=== PATIENT | male | born 1935 | race Caucasian/White ===

== ENCOUNTER 2017-08-16 06:37 | Observation (INO) | payer MEDICARE, BC ==
[~2017-08-16] VITALS: Ht 172.7 cm; Wt 90.5 kg
[2017-08-16 06:38] VITALS: BP 173/86; PULSE 68; RESP 16; TEMP 98.4; O2SAT 95
[2017-08-16] MEDS ORDERED: LIPI80TA PO (06:53)
[2017-08-16] MEDS ORDERED: ASPI-516 CHEW (06:53)
[2017-08-16] MEDS ORDERED: LEXA10TA PO (06:53)
[2017-08-16] MEDS ORDERED: CARV12.52 PO (06:55)
[2017-08-16] MEDS ORDERED: PROT40TA PO (06:55)
[2017-08-16] MEDS ORDERED: PRIN5TAB PO (06:55)
[2017-08-16] MEDS ORDERED: METO-309 PO (06:55)
[2017-08-16] MEDS ORDERED: ASPIRIN 325 MG TAB PO ONE (07:15)
[2017-08-16 07:16] VITALS: O2SAT 96
--- NOTE | 2017-08-16 07:17 | PD ---
HPI Chief Complaint: Chest Pain Time Seen by Provider: 07:06 Travel History International Travel<30 days: No Contact w/Intl Traveler<30days: No Traveled to known affect area: No History of Present Illness HPI 81-year-old male complains chest pain. Patient states that he started having chest pain for the past week. Patient states the chest pain started a week ago and last about 4-5 days and easing off yesterday however get worse today. Patient states that the pain radiated to left arm. Patient denies palpitation nausea or diaphoresis. Patient states that the chest pain and pressure pain localized to left chest. Patient denies any fever chills. Patient denies any coughing congestion. Patient has history of CAD status post SC, CABG, aortic valve surgery. Patient has history hypertension and hyperlipidemia. Patient denies history diabetes. Patient is a nonsmoker. Patient on aspirin 81 mg daily. On a scale of 1-10 the pain is a 6. Patient states the pain is not the social with exertion. PFSH Past Medical History Hx Anticoagulant Therapy: Yes (Aspirin) Arthritis: Yes Cardiovascular Problems: Yes (MIx1, CABG x3, Aortic valve replacement, HTN, CAD ) High Cholesterol: Yes Chest Pain: Yes Coronary Artery Disease: Yes Diminished Hearing: Yes (R ear) GERD: Yes Hypertension: Yes Inguinal Hernia: Yes Myocardial Infarction: Yes Tetanus Vaccination: Unknown Influenza Vaccination: Yes Past Surgical History Abdominal Surgery: Yes (R inguinal hernia) Coronary Artery Bypass Graft: Yes (x3) Social History Alcohol Use: No (rarely) Tobacco Use: No Substance Use: No Allergies-Medications (Allergen,Severity, Reaction): Coded Allergies: No Known Drug Allergies (Verified Allergy, Unknown, 08/16/17) Reported Meds & Prescriptions Reported Meds & Active Scripts Active Reported Protonix (Pantoprazole Sodium) 40 Mg Tab 40 Mg PO DAILY Carvedilol 12.5 Mg Tab 12.5 Mg PO BID Lopressor (Metoprolol Tartrate) 50 Mg Tab 25 Mg PO BID Prinivil (Lisinopril) 5 Mg Tab 5 Mg PO BID Lexapro (Escitalopram Oxalate) 10 Mg Tab 10 Mg PO DAILY Lipitor (Atorvastatin Calcium) 80 Mg Tab 80 Mg PO HS Aspirin 81 Mg Chew 81 Mg CHEW BID Review of Systems General / Constitutional: No: Fever Eyes: No: Visual changes HENT: No: Headaches Cardiovascular: Positive: Chest Pain or Discomfort Respiratory: No: Shortness of Breath Gastrointestinal: No: Abdominal Pain Genitourinary: No: Dysuria Musculoskeletal: No: Pain Skin: No Rash Neurologic: No: Weakness Psychiatric: No: Depression Endocrine: No: Polydipsia Hematologic/Lymphatic: No: Easy Bruising Physical Exam Narrative GENERAL: Well-nourished, well-developed patient. SKIN: Focused skin assessment warm/dry. HEAD: Normocephalic. EYES: No scleral icterus. No injection or drainage. NECK: Supple, trachea midline. No JVD or lymphadenopathy. CARDIOVASCULAR: Regular rate and rhythm without murmurs, gallops, or rubs. RESPIRATORY: Breath sounds equal bilaterally. No accessory muscle use. GASTROINTESTINAL: Abdomen soft, non-tender, nondistended. MUSCULOSKELETAL: No cyanosis, or edema. BACK: Nontender without obvious deformity. No CVA tenderness. Neurologic exam normal. Data Data Last Documented VS Vital Signs Date Time Temp Pulse Resp B/P (MAP) Pulse Ox O2 Delivery O2 Flow Rate FiO2 08/16/17 07:16 96 Room Air 08/16/17 06:38 98.4 68 16 Orders Orders Electrocardiogram (08/16/17 07:12) Complete Blood Count With Diff (08/16/17 07:12) Comprehensive Metabolic Panel (08/16/17 07:12) Creatine Kinase (Cpk) (08/16/17 07:12) Troponin I (08/16/17 07:12) Prothrombin Time / Inr (Pt) (08/16/17 07:12) Act Partial Throm Time (Ptt) (08/16/17 07:12) Chest, Single Ap (08/16/17 07:12) Iv Access Insert/Monitor (08/16/17 07:12) Ecg Monitoring (08/16/17 07:12) Oximetry (08/16/17 07:12) Aspirin (Aspirin) (08/16/17 07:15) Morphine Inj (Morphine Inj) (08/16/17 07:30) Ondansetron Inj (Zofran Inj) (08/16/17 07:30) Morphine Inj (Morphine Inj) (08/16/17 09:00) Labs Laboratory Tests Test 08/16/17 07:05 White Blood Count 8.1 TH/MM3 Red Blood Count 5.09 MIL/MM3 Hemoglobin 16.0 GM/DL Hematocrit 45.9 % Mean Corpuscular Volume 90.1 FL Mean Corpuscular Hemoglobin 31.4 PG Mean Corpuscular Hemoglobin Concent 34.8 % Red Cell Distribution Width 14.0 % Platelet Count 177 TH/MM3 Mean Platelet Volume 8.8 FL Neutrophils (%) (Auto) 50.0 % Lymphocytes (%) (Auto) 34.8 % Monocytes (%) (Auto) 8.5 % Eosinophils (%) (Auto) 5.0 % Basophils (%) (Auto) 1.7 % Neutrophils # (Auto) 4.0 TH/MM3 Lymphocytes # (Auto) 2.8 TH/MM3 Monocytes # (Auto) 0.7 TH/MM3 Eosinophils # (Auto) 0.4 TH/MM3 Basophils # (Auto) 0.1 TH/MM3 CBC Comment DIFF FINAL Differential Comment Prothrombin Time 11.0 SEC Prothromb Time International Ratio 1.1 RATIO Activated Partial Thromboplast Time 25.9 SEC Blood Urea Nitrogen 13 MG/DL Creatinine 0.95 MG/DL Random Glucose 102 MG/DL Total Protein 7.1 GM/DL Albumin 3.7 GM/DL Calcium Level 9.0 MG/DL Alkaline Phosphatase 92 U/L Aspartate Amino Transf (AST/SGOT) 27 U/L Alanine Aminotransferase (ALT/SGPT) 31 U/L Total Bilirubin 0.9 MG/DL Sodium Level 138 MEQ/L Potassium Level 4.2 MEQ/L Chloride Level 103 MEQ/L Carbon Dioxide Level 29.4 MEQ/L Anion Gap 6 MEQ/L Estimat Glomerular Filtration Rate 76 ML/MIN Total Creatine Kinase 105 U/L Troponin I LESS THAN 0.02 NG/ML MDM Medical Decision Making Medical Screen Exam Complete: Yes Emergency Medical Condition: Yes Interpretation(s) EKG shows sinus rhythm nonspecific ST-T wave change. T-wave inversion in I, aVL , V5 and V6. Occasional PVCs. No previous EKG for comparison. Differential Diagnosis Differential diagnosis including musculoskeletal, angina, SC, PE, pneumothorax. Narrative Course 81-year-old male with chest pain. History of CAD. Patient will be admitted to the chest pain center. Diagnosis Primary Impression: Chest pain Qualified Codes: R07.9 - Chest pain, unspecified Admitting Information Admitting Physician Requests: Observation Shorty Hough MD Aug 16, 2017 07:16
[2017-08-16] MEDS ORDERED: MORPHINE SULFATE 2 MG/ML INJ IV PUSH ONE ×2 (07:30→09:00)
[2017-08-16] MEDS ORDERED: ONDANSETRON HCL 4 MG/2 ML VIAL IV PUSH ONE (07:30)
[2017-08-16 07:31] LABS: BASOPHIL # 0.1 TH/MM3 (0-0.2); BASOPHIL % 1.7 % (0.0-2.0); EOSINOPHIL # 0.4 TH/MM3 (0-0.4); HEMATOCRIT 45.9 % (39.0-51.0); LYMPH % 34.8 % (9.0-44.0); LYMPHOCYTE # 2.8 TH/MM3 (1.0-4.8); MEAN CELL VOLUME 90.1 FL (80.0-100.0); MEAN CORPUSCULAR HEMOGLOBIN 31.4 PG (27.0-34.0); MEAN CORPUSCULAR HGB CONC 34.8 % (32.0-36.0); MEAN PLATELET VOLUME 8.8 FL (7.0-11.0); MONO % 8.5 % (0.0-8.0); MONOCYTE # 0.7 TH/MM3 (0-0.9); PLATELET COUNT 177 TH/MM3 (150-450); RED BLOOD COUNT 5.09 MIL/MM3 (4.50-5.90); WHITE BLOOD COUNT 8.1 TH/MM3 (4.0-11.0)
[2017-08-16 07:40] LABS: INTERNATIONAL NORMALIZED RATIO 1.1 RATIO
[2017-08-16 07:49] LABS: ALKALINE PHOSPHATASE 92 U/L (45-117); TOTAL BILIRUBIN ADULT 0.9 MG/DL (0.2-1.0); TOTAL PROTEIN 7.1 GM/DL (6.4-8.2); TROPONIN I LESS THAN 0.02 NG/ML (0.02-0.05)
[2017-08-16 07:59] LABS: ALBUMIN 3.7 GM/DL (3.4-5.0); ALT (GPT) 31 U/L (12-78); AST (GOT) 27 U/L (15-37); BICARBONATE 29.4 MEQ/L (21.0-32.0); BLOOD UREA NITROGEN 13 MG/DL (7-18); CHLORIDE 103 MEQ/L (98-107); CREATININE 0.95 MG/DL (0.60-1.30); GLOMERULAR FILTRATION RATE 76 ML/MIN (>89); GLUCOSE,RANDOM 102 MG/DL (74-106); SODIUM (NA) 138 MEQ/L (136-145)
--- NOTE | 2017-08-16 08:09 | RADRPT ---
EXAM DATE/TIME: 08/16/2017 07:41 [facility] COMPARISON: No previous studies available for comparison. INDICATIONS : Chest Pain MEDICAL HISTORY : Cardiovascular disease. SURGICAL HISTORY : CABG. ENCOUNTER: Initial ACUITY: 1 day PAIN SCORE: 5/10 LOCATION: chest FINDINGS: Single view of the chest demonstrates post surgical changes related to prior CABG surgery. The heart size appears normal. Pulmonary vasculature is normal. Lungs are clear. Osseous structures are unremar kable. CONCLUSION: No evidence of acute cardiopulmonary disease. Patria May MD on August 16, 2017 at 8:06 Board Certified Radiologist. This report was verified electronically.
[2017-08-16] MEDS ORDERED: ACETAMINOPHEN 500 MG CPLT PO PRN (09:00)
[2017-08-16] MEDS ORDERED: SODIUM CHLORIDE 0.9% FLUSH 10 ML FLUSH IV FLUSH PRN (09:00)
[2017-08-16] MEDS ORDERED: ONDANSETRON HCL 4 MG/2 ML VIAL IV PUSH PRN (09:00)
[2017-08-16] MEDS ORDERED: SODIUM CHLORIDE 0.9% FLUSH 10 ML FLUSH IV FLUSH SCH (09:00)
--- NOTE | 2017-08-16 09:18 | HHI.HP ---
HPI Primary Care Physician PCP in [place] Chief Complaint Chest pain History of Present Illness 81-year-old male with history of coronary artery disease and CABG October 2015 presents to ER for further evaluation of chest pain. Onset one week. Location substernal. Characterized as "alot of ingestion and gas." Discomfort has porgressively gotten worse, therefore came to ER for further evaluation. Duration continuous. No radiation of pain. No know precipitating factors. Relieving factors include flatus and belching. Visiting from [place] past month , plans to return home in September. Unable to remember chest discomfort or symptoms prior to CABG. Review of Systems General: No fatigue,weakness, fever, chills, recent illness, or change in appetite. Has been in his general state of health. HEENT: No PITTS, no vision changes, no nasal congestion or drainage, no dysphasia CV: Continues to have chest discomfort as stated above. No palpitations, intermittent leg pain, or dizziness. RESP: No SOB, cough, wheeze, recent URI GI: As stated above. No nausea, vomiting, bowel changes, diarrhea, constipation , pain, distention, melena, or blood in the stool. No unintentional weight gain or weight loss. : No dysuria, urgency, frequency EXT: No lower leg edema, no paraesthesias MS: No discomfort or change in ROM NEURO: No change in memory, difficulty with balance, LOC, motor/sensory deficits PSYCH: No anxiety, depression SKIN: No rashes, no concerning lesions Past Family Social History Allergies: Coded Allergies: No Known Drug Allergies (Verified Allergy, Unknown, 08/16/17) Past Medical History Coronary artery disease, hyperlipidemia, GERD, hypertension, myocardial infarction, arthritis Past Surgical History Right inguinal hernia, coronary artery bypass graft 3 (October 2015), Aortic valve replacement Reported Medications Reported Meds & Active Scripts Active Reported Protonix (Pantoprazole Sodium) 40 Mg Tab 40 Mg PO DAILY Carvedilol 12.5 Mg Tab 12.5 Mg PO BID Lopressor (Metoprolol Tartrate) 50 Mg Tab 25 Mg PO BID Prinivil (Lisinopril) 5 Mg Tab 5 Mg PO BID Lexapro (Escitalopram Oxalate) 10 Mg Tab 10 Mg PO DAILY Lipitor (Atorvastatin Calcium) 80 Mg Tab 80 Mg PO HS Aspirin 81 Mg Chew 81 Mg CHEW BID Active Ordered Medications Current Medications Medications (Trade) Dose Ordered Sig/Parker Route Start Time Stop Time Status Last Admin (NS Flush) 2 ml UNSCH PRN IV FLUSH 08/16/17 09:00 (NS Flush) 2 ml BID IV FLUSH 08/16/17 09:00 08/16/17 09:10 (Tylenol) 500 mg Q4H PRN PO 08/16/17 09:00 (Zofran Inj) 4 mg Q6H PRN IV PUSH 08/16/17 09:00 Social History Known coronary artery disease, hypertension, and hyperlipidemia. No known diabetes. Lifelong nonsmoker. Denies neck or illegal drug use. Retired. . Visiting from [place]. Past cardiac testing No recent cardiac testing CABG x3 (October 2015). Clinical Informatics Physician is Sonja Physical Exam Vital Signs Vital Signs Date Time Temp Pulse Resp B/P (MAP) Pulse Ox O2 Delivery O2 Flow Rate FiO2 08/16/17 07:16 96 Room Air 08/16/17 06:38 98.4 68 16 173/86 (115) 95 Room Air Physical Exam GENERAL: Alert WN, WD, NAD, pleasant, moderately obese, elderly male HEAD: NC, AT EYES: Sclera clear, conjunctiva without injection, pupils equal and round ENT: Mucous membranes pink and moist NECK: Supple, no masses, trachea midline CV: RRR, 2/6 systolic murmur, no rub, gallop, or JVD, S1-S2 no S3-S4. No carotid bruits. Chest wall nontender with palpation. RESP: Clear lungs throughout bilateral, no crackles, wheeze, rhonchi, symmetrical chest rise, nonlabored, able to speak in full sentences ABD: Soft, NT, ND, no masses, positive bowel tones EXT: Pulses +24, no dependent edema MS: Normal tone 4 extremities, no obvious deformities, full range of motion NEURO: CN II through CN XII grossly intact, motor strength 5/5 PSYCH: A+O 3, pleasant affect, appropriate speech, mood, insight and judgment SKIN: Normal turgor, normal texture, no lesions, no rashes, brisk cap refill, even hair distribution, midline chest surgical scar Laboratory Laboratory Tests Test 08/16/17 07:05 White Blood Count 8.1 Red Blood Count 5.09 Hemoglobin 16.0 Hematocrit 45.9 Mean Corpuscular Volume 90.1 Mean Corpuscular Hemoglobin 31.4 Mean Corpuscular Hemoglobin Concent 34.8 Red Cell Distribution Width 14.0 Platelet Count 177 Mean Platelet Volume 8.8 Neutrophils (%) (Auto) 50.0 Lymphocytes (%) (Auto) 34.8 Monocytes (%) (Auto) 8.5 Eosinophils (%) (Auto) 5.0 Basophils (%) (Auto) 1.7 Neutrophils # (Auto) 4.0 Lymphocytes # (Auto) 2.8 Monocytes # (Auto) 0.7 Eosinophils # (Auto) 0.4 Basophils # (Auto) 0.1 CBC Comment DIFF FINAL Differential Comment Prothrombin Time 11.0 Prothromb Time International Ratio 1.1 Activated Partial Thromboplast Time 25.9 Blood Urea Nitrogen 13 Creatinine 0.95 Random Glucose 102 Total Protein 7.1 Albumin 3.7 Calcium Level 9.0 Alkaline Phosphatase 92 Aspartate Amino Transf (AST/SGOT) 27 Alanine Aminotransferase (ALT/SGPT) 31 Total Bilirubin 0.9 Sodium Level 138 Potassium Level 4.2 Chloride Level 103 Carbon Dioxide Level 29.4 Anion Gap 6 Estimat Glomerular Filtration Rate 76 Total Creatine Kinase 105 Troponin I LESS THAN 0.02 Result Diagram: 08/16/1770408/16/17704 Imaging Last 48 hours Impressions Chest X-Ray 08/16/17711 Signed Impressions: Service Date/Time: Wednesday, August 16, 2017 07:41 - CONCLUSION: No evidence of acute cardiopulmonary disease. Patria May MD Course EKG Normal sinus rhythm, nonspecific ST and T-wave changes, T-wave inversions Lead 1 , AVF, V5 and V6 (no EKG available for comparison) Caprini VTE Risk Assessment Caprini VTE Risk Assessment: Mod/High Risk (score >= 2) Caprini Risk Assessment Model Point Value = 1 Point Value = 2 Point Value = 3 Point Value = 5 Age 41-60 Minor surgery BMI > 25 kg/m2 Swollen legs Varicose veins or History of unexplained or recurrent spontaneous Oral contraceptives or hormone replacement Sepsis (< 1 month) Serious lung disease, including pneumonia (< 1 month) Abnormal pulmonary function Acute myocardial infarction Congestive heart failure (< 1 month) History of inflammatory bowel disease Medical patient at bed rest Age 61-74 Arthroscopic surgery Major open surgery (> 45 min) Laparoscopic surgery (> 45 min) Malignancy Confined to bed (> 72 hours) Immobilizing plaster cast Central venous access Age >= 75 History of VTE Family history of VTE Factor V Leiden Prothrombin [id number] Lupus anticoagulant Anticardiolipin antibodies Elevated serum homocysteine Heparin-induced thrombocytopenia Other congenital or acquired thrombophilia Stroke (< 1 month) Elective arthroplasty Hip, pelvis, or leg fracture Acute spinal cord injury (< 1 month) Prophylaxis Regimen Total Risk Factor Score Risk Level Prophylaxis Regimen 0-1 Low Early ambulation 2 Moderate Order ONE of the following: *Sequential Compression Device (SCD) *Heparin 5000 units SQ BID 3-4 Higher Order ONE of the following medications: *Heparin 5000 units SQ TID *Enoxaparin/Lovenox 40 mg SQ daily (WT < 150 kg, CrCl > 30 mL/min) *Enoxaparin/Lovenox 30 mg SQ daily (WT < 150 kg, CrCl > 10-29 mL/min) *Enoxaparin/Lovenox 30 mg SQ BID (WT < 150 kg, CrCl > 30 mL/min) AND/OR *Sequential Compression Device (SCD) 5 or more Highest Order ONE of the following medications: *Heparin 5000 units SQ TID (Preferred with Epidurals) *Enoxaparin/Lovenox 40 mg SQ daily (WT < 150 kg, CrCl > 30 mL/min) *Enoxaparin/Lovenox 30 mg SQ daily (WT < 150 kg, CrCl > 10-29 mL/min) *Enoxaparin/Lovenox 30 mg SQ BID (WT < 150 kg, CrCl > 30 mL/min) AND *Sequential Compression Device (SCD) Assessment and Plan Assessment and Plan #1 Atypical chest pain-admitted to chest pain center. Seen and evaluated by Dr Dawson Campos. First set of EKG and cardiac enzymes unremarkable. Continuous chest pain one week, proceed with Lexiscan this morning. If unremarkable, plan to discharge home later this afternoon. Encouraged him to discuss with gas pipe layer and/or PCP regarding taking both Coreg and Metoprolol daily. Verbalized understanding and agreeable to plan of care. #2 History of CAD-continue carvedilol, Lipitor, aspirin, and lisinopril #3 GERD-continue Protonix Yulisa Ricks Aug 16, 2017 09:18
[2017-08-16] MEDS ORDERED: NITROGLYCERIN 0.4 MG SL 25 TABS/BTL SL PRN (09:30)
[2017-08-16 10:00] VITALS: BP 148/71; PULSE 52; RESP 14; O2SAT 94
[2017-08-16] MEDS ORDERED: REGADENOSON INJ 0.4 MG/5 ML SYR ONE (12:12)
[2017-08-16 13:40] VITALS: BP 152/73; PULSE 59; RESP 19; O2SAT 95
--- NOTE | 2017-08-16 14:02 | RADRPT ---
EXAM DATE/TIME: 08/16/2017 12:07 [facility] COMPARISON: No previous studies available for comparison. INDICATIONS : Chest pain. DOSE: 25.7 mCi Tc99m Myoview at stress. 8.8 mCi Tc99m Myoview at rest. 0.4 mg Lexiscan STRESS SYMPTOMS: Shortness of breath. EJECTION FRACTION: 25% MEDICAL HISTORY : Hypertension. Myocardial infarction. Gastroesophageal reflux disease. SURGICAL HISTORY : Inguinal hernia repair. CABG x 3 ENCOUNTER: Initial ACUITY: 1 day PAIN SCALE: 6/10 LOCATION: Bilateral chest TECHNIQUE: The patient underwent pharmacologic stress with infusion of prescribed dose. Continuous ECG tracing was monitored during stress. Gated SPECT imaging was performed after stress and conventional SPECT i maging was performed at rest. The examination was performed on a SPECT/CT scanner, both attenuation and non-corrected datasets were reviewed. FINDINGS: DISTRIBUTION: The maximum perfused segment at stress is in the inferior wall. PERFUSION STUDY: Large fixed defect in the apex. No reversible perfusion defect. GATED STUDY: Global hypokinesis. Enlarged heart. Dyskinetic segment involving the apex and distal septum. CONCLUSION: 1. Large fixed perfusion defect of the apex with associated dyskinesis. 2. Global hypokinesis and ejection fraction of 25%. 3. No reversible perfusion defects. RISK CATEGORY: 3- High Risk Clifton Ricci MD on August 16, 2017 at 13:56 Board Certified Radiologist. This report was verified electronically.
--- NOTE | 2017-08-16 14:26 | EKG ---
Date Performed: 08/16/2017 Time Performed: 06:54:57 PTAGE: 81 years EKG: Sinus rhythm WITH FREQUENT VENTRICULAR PREMATURE COMPLEXES ABNORMAL ECG NO PREVIOUS TRACING Nonspecific lateral ST changes. DOCTOR: Mayur Cleveland Interpretating Date/Time 08/16/2017 14:24:20
--- NOTE | 2017-08-16 14:32 | HHI.DCPOC ---
Discharge Care Plan Diagnosis: (1) Atypical chest pain (2) Hx of coronary artery disease (3) GERD (gastroesophageal reflux disease) (4) Decreased cardiac ejection fraction Goals to Promote Your Health * To prevent worsening of your condition and complications * To maintain your health at the optimal level Directions to Meet Your Goals Take your medications as prescribed Follow your dietary instruction Follow activity as directed Keep your appointments as scheduled Take your immunizations and boosters as scheduled If your symptoms worsen call your PCP, if no PCP go to Urgent Care Center or Emergency Room Smoking is Dangerous to Your Health. Avoid second hand smoke Call the 24-hour hour crisis hotline for domestic abuse at Yulisa Ricks Aug 16, 2017 14:32
[2017-08-16 15:00] VITALS: BP 149/77; PULSE 61; RESP 18; O2SAT 96
--- NOTE | 2017-08-16 15:32 | EKG ---
Date Performed: 08/16/2017 Time Performed: 10:41:07 PTAGE: 81 years EKG: SINUS BRADYCARDIA WITH FREQUENT VENTRICULAR PREMATURE COMPLEXES LEFT VENTRICULAR HYPERTROPH Y AND ST-T CHANGE ABNORMAL ECG NO PREVIOUS TRACING DOCTOR: Dawson Campos Interpretating Date/Time 08/16/2017 15:31:58
--- NOTE | 2017-08-16 15:35 | TR ---
Date Performed: 08/16/2017 Time Performed: 12:28:46 DOCTOR: Dawson Campos DRUG LIST: CLINICAL HISTORY: ANGINA REASON FOR TEST: REASON FOR ENDING: OBSERVATION: CONCLUSION: Lexiscan stress test was performed under standard four minute protocol. [place]ion[place] e was injected one minute prior to ending the test. No electrocardiographic abormalities were present to suggest ischemia. Nuclear imaging and interpretation are pending. COMMENTS:
[2017-08-16] MEDS ORDERED: NITR1SUB3 SL (15:54)
[2017-08-16] MEDS ORDERED: LISINOPRIL 5 MG TAB PO SCH (21:00)
[2017-08-16] MEDS ORDERED: CARVEDILOL 12.5 MG TAB PO SCH (21:00)
[2017-08-16] MEDS ORDERED: ATORVASTATIN 80 MG TAB PO SCH (21:00)
[2017-08-17] MEDS ORDERED: ESCITALOPRAM OXALATE 10 MG TAB PO SCH (09:00)
[2017-08-17] MEDS ORDERED: PANTOPRAZOLE SOD 40 MG DELAYED RELEASE TAB PO SCH (09:00)
== END 2017-08-16 17:16 | disposition home or self-care (01) ==
LOC: NEPE 06:37 → NEDA 08:52
PROVIDERS: ADMIT Internal Medicine Cardiovascular Disease; ATTEND Internal Medicine Cardiovascular Disease
DX: R07.9 Chest pain, unspecified (principal); I25.10 Atherosclerotic heart disease of native coronary artery without angina pectoris; K21.9 Gastro-esophageal reflux disease without esophagitis; Z95.1 Presence of aortocoronary bypass graft; I25.2 Old myocardial infarction; I10 Essential (primary) hypertension; E78.5 Hyperlipidemia, unspecified; Z79.82 Long term (current) use of aspirin; M19.90 Unspecified osteoarthritis, unspecified site; Z95.2 Presence of prosthetic heart valve; Z79.899 Other long term (current) drug therapy; R94.31 Abnormal electrocardiogram [ECG] [EKG]
CPT/HCPCS: 71045; 78452; 80053; 82550; 84484; 85025; 85610; 85730; 93005; 93017; 96374; 96375; 96376; 99285; A9502; G0378; J2270; J2405; J2785